=== PATIENT | female | born 1985 | race Caucasian/White ===

== ENCOUNTER → 2018-02-11 | Outpatient (CLI) | payer OTHER ==
[~2018-02-11] MED LIST: ALBU90OI61 INH
== END ==
LOC: LAB 14:07 → LAB SHORT 14:07
PROVIDERS: Registered Nurse Community Health
DX: Z12.4 Encounter for screening for malignant neoplasm of cervix (principal)
CPT/HCPCS: 87624; G0123

== ENCOUNTER → 2018-03-08 | Outpatient (CLI) | payer OTHER ==
[2018-03-08 13:34] LABS: BASOPHILS ABSOLUTE AUTO 0.07 K/mm3 (0.00-0.23); BASOPHILS PERCENT AUTO 1 % (0-2); EOSINOPHILS PERCENT AUTO 2 % (0-6); Hematocrit 44.1 % (33.0-51.0); Hemoglobin 14.8 g/dL (11.5-16.0); IMMATURE GRAN ABSOLUTE AUTO 0.09 K/mm3 (0.00-0.10); IMMATURE GRAN PERCENT AUTO 1 % (0-1); LYMPHOCYTES ABSOLUTE AUTO 3.51 K/mm3 (0.84-5.20); LYMPHOCYTES PERCENT AUTO 24 % (21-46); MONOCYTES ABSOLUTE AUTO 0.89 K/mm3 (0.16-1.47); MONOCYTES PERCENT AUTO 6 % (4-13); Mean Corpuscular HGB 31.5 pg (26.0-34.0); Mean Corpuscular HGB Conc 33.6 g/dL (31.5-36.5); Mean Corpuscular Volume 94 fL (80-100); Mean Platelet Volume 9.2 fL (9.1-12.4); NEUTROPHILS ABSOLUTE AUTO 10.07 K/mm3 (1.96-9.15); NEUTROPHILS PERCENT AUTO 67 % (41-73); Platelet Count 336 K/mm3 (150-400); RDW Coefficient Variation 12.7 % (11.7-14.2); RDW Standard Deviation 43.8 fL (35.1-46.3); White Blood Cell Count 14.93 K/mm3 (4.00-11.30)
[2018-03-08 14:15] LABS: Alanine Aminotransfer (ALT/SGP 19 U/L (12-78); Albumin, Blood 3.6 g/dL (3.4-5.0); Alk Phos 64 U/L (40-126); Anion Gap 9 mmol/L (6-16); Aspartate Aminotrans (AST/SGOT 11 U/L (12-37); Bilirubin, Total 0.5 mg/dL (0.1-1.0); Blood Urea Nitrogen 21 mg/dL (8-24); Bun/Creatinine Ratio 24.4 (12.0-20.0); CO2, Blood 26 mmol/L (21-32); Calcium, Blood 8.7 mg/dL (8.5-10.1); Chloride, Blood 105 mmol/L (98-108); Creatinine, Blood 0.86 mg/dL (0.40-1.00); Globulin, Blood 3.7 g/dL (2.2-4.0); Glomerular Filtration Rate >60 (60-); Glucose, Blood 80 mg/dL (70-99); Potassium, Blood 4.5 mmol/L (3.5-5.5); Sodium, Blood 140 mmol/L (136-145); Total Protein, Blood 7.3 g/dL (6.4-8.2)
== END ==
LOC: LAB SHORT 13:27 → LAB EV 13:27
PROVIDERS: Physician Assistant Surgical
DX: R10.9 Unspecified abdominal pain (principal)
CPT/HCPCS: 80053; 83690; 85025

== ENCOUNTER 2018-05-04 01:34 | Emergency (ER) | payer OTHER ==
[~2018-05-04] VITALS: Ht 180.3 cm; Wt 134.7 kg
[2018-05-04] MEDS ORDERED: LEVSOD50 PO (02:19)
[2018-05-04] MEDS ORDERED: Prednisone20 MG PO (02:36)
== END 2018-05-04 02:55 | disposition home or self-care (01) ==
LOC: ER 01:34
DX: J45.901 Unspecified asthma with (acute) exacerbation (principal); Z88.0 Allergy status to penicillin; Z79.899 Other long term (current) drug therapy; Z79.51 Long term (current) use of inhaled steroids; Z87.891 Personal history of nicotine dependence
CPT/HCPCS: 94640; 99284-25

== ENCOUNTER → 2018-07-09 | Outpatient (CLI) | payer OTHER ==
[~2018-07-09] MED LIST changes: +BIRTH CONTROL; +CYCL10 PO; +IBUP600 PO; +LEVSOD50 PO; +LOSA25 PO; +Prednisone20 MG PO
[2018-07-09 10:52] LABS: BASOPHILS ABSOLUTE AUTO 0.09 K/mm3 (0.00-0.23); BASOPHILS PERCENT AUTO 1 % (0-2); EOSINOPHILS ABSOLUTE AUTO 0.26 K/mm3 (0.00-0.68); EOSINOPHILS PERCENT AUTO 2 % (0-6); Hematocrit 36.8 % (33.0-51.0); Hemoglobin 12.5 g/dL (11.5-16.0); IMMATURE GRAN ABSOLUTE AUTO 0.08 K/mm3 (0.00-0.10); IMMATURE GRAN PERCENT AUTO 1 % (0-1); LYMPHOCYTES ABSOLUTE AUTO 2.14 K/mm3 (0.84-5.20); LYMPHOCYTES PERCENT AUTO 14 % (21-46); MONOCYTES ABSOLUTE AUTO 1.14 K/mm3 (0.16-1.47); MONOCYTES PERCENT AUTO 8 % (4-13); Mean Corpuscular HGB 31.7 pg (26.0-34.0); Mean Corpuscular Volume 93 fL (80-100); Mean Platelet Volume 9.6 fL (9.1-12.4); NEUTROPHILS ABSOLUTE AUTO 11.11 K/mm3 (1.96-9.15); NEUTROPHILS PERCENT AUTO 75 % (41-73); Platelet Count 313 K/mm3 (150-400); RDW Coefficient Variation 12.2 % (11.7-14.2); RDW Standard Deviation 42.3 fL (35.1-46.3); Red Blood Cell Count 3.94 M/mm3 (3.80-5.20); White Blood Cell Count 14.82 K/mm3 (4.00-11.30)
[2018-07-09 11:01] LABS: Alanine Aminotransfer (ALT/SGP 20 U/L (12-78); Albumin, Blood 3.2 g/dL (3.4-5.0); Albumin/Globulin Ratio 0.7 (0.8-1.8); Alk Phos 89 U/L (40-126); Anion Gap 9 mmol/L (6-16); Aspartate Aminotrans (AST/SGOT 12 U/L (12-37); Bilirubin, Total 0.5 mg/dL (0.1-1.0); Blood Urea Nitrogen 13 mg/dL (8-24); Bun/Creatinine Ratio 17.1 (12.0-20.0); CO2, Blood 26 mmol/L (21-32); Calcium, Blood 9.1 mg/dL (8.5-10.1); Chloride, Blood 102 mmol/L (98-108); Creatinine, Blood 0.76 mg/dL (0.40-1.00); Globulin, Blood 4.3 g/dL (2.2-4.0); Glomerular Filtration Rate >60 (60-); Glucose, Blood 103 mg/dL (70-99); Potassium, Blood 3.7 mmol/L (3.5-5.5); Sodium, Blood 137 mmol/L (136-145); Total Protein, Blood 7.5 g/dL (6.4-8.2)
== END | disposition home or self-care (01) ==
LOC: LAB SHORT 10:45 → LAB EV 10:45
PROVIDERS: Physician Assistant
DX: R06.00 Dyspnea, unspecified (principal)
CPT/HCPCS: 80053; 85025

== ENCOUNTER 2018-07-10 02:54 | Emergency (ER) | payer OTHER ==
[~2018-07-10] VITALS: Ht 180.3 cm; Wt 133.8 kg
[~2018-07-10 02:54] MED LIST changes: -IBUP600 PO
[2018-07-10] MEDS ORDERED: IBUP600 PO (04:07)
== END 2018-07-10 04:35 | disposition home or self-care (01) ==
LOC: ER 02:54
DX: S20.211A Contusion of right front wall of thorax, initial encounter (principal); W22.8XXA Striking against or struck by other objects, initial encounter; Z88.0 Allergy status to penicillin; Z79.899 Other long term (current) drug therapy; J45.909 Unspecified asthma, uncomplicated; I10 Essential (primary) hypertension; Z87.891 Personal history of nicotine dependence
CPT/HCPCS: 71046; 96372; 99283-25; J1885

== ENCOUNTER → 2022-07-25 | Outpatient (CLI) | payer OTHER ==
[~2022-07-25] MED LIST changes: +IBUP600 PO
== END | disposition home or self-care (01) ==
LOC: LAB 18:44 → LAB SHORT 18:44
DX: J45.21 Mild intermittent asthma with (acute) exacerbation (principal)
CPT/HCPCS: 85379

== ENCOUNTER 2025-08-10 09:12 | Day surgery (SDC) | payer OTHER ==
[2025-08-10] VITALS (12 sets, daily range): BP systolic 108–134; BP diastolic 64–85
[~2025-08-10] VITALS: Ht 175.3 cm; Wt 106.7 kg
[~2025-08-10 09:12] MED LIST changes: +ALBU90OI INH; +ALDACTONE25 MG PO; +AUVELITY ER 451 EACH PO; +Adderall 20 MG20 MG PO; +CLOBETASOL PROP59 ML TOP; +CeFAZolin Sodium 2,000 MG in NS 100 ML IV SCH; +GABA100 PO; +HYDROCHLOROTH12.5 MG PO; +LEVSOD137 PO; -LEVSOD50 PO; -LOSA25 PO; +LOSARTAN POTAS100 M1 PO; +NAPR500 PO; +ONDA4ODT MM; +OZEMPIC2 MG/0.75 SC; +Prilosec Otc20 MG PO; +Prozac20 MG PO; +SUBOXONE 8 MG-1 EACH SL
[2025-08-10] MEDS ORDERED: CeFAZolin Sodium 2,000 MG VIAL ONE (10:08)
--- NOTE | 2025-08-10 10:21 | NUR ---
PATIENT ACCOMPANIED TO DAY SURGERY WITH SON, HOLLI. RIDE ARRANGED HOME WITH DAUGHTER, WHO HOLLI WILL CONTACT AFTER SURGERY. PATIENT USING BEAR HUGGER DUE TO C/O OF COLD. PATIENT REMOVING NOSE RING AND EARING HOOP AND GIVING TO SON FOR SAFE KEEPING.
[2025-08-10] MEDS ORDERED: FentaNYL Citrate 50 MCG/ML 2 ML Injection ONE ×2 (10:48→13:35)
[2025-08-10] MEDS ORDERED: Midazolam HCl 1MG / ML 2ML Vial ONE (10:48)
[2025-08-10] MEDS ORDERED: Rocuronium Bromide 10 MG/ML 5ML Injection IV ONE (10:54)
[2025-08-10] MEDS ORDERED: Bupivacaine 0.5% HCl 5 MG/ML 30MLVIAL ONE (11:36)
[2025-08-10] MEDS ORDERED: Ondansetron HCl 2 MG / ML 2ML Vial ONE (12:04)
[2025-08-10] MEDS ORDERED: Dexamethasone Sod Phos 10 MG/ML 1ML VIAL ONE (12:04)
[2025-08-10] MEDS ORDERED: Sugammadex Sodium 200 MG/2ML SDV (100 MG/ML) ONE (12:18)
[2025-08-10] MEDS ORDERED: Ketorolac Tromethamine 30mg Vial ONE (12:18)
[2025-08-10] MEDS ORDERED: Ondansetron HCl 2 MG / ML 2ML Vial IV PRN (12:55)
[2025-08-10] MEDS ORDERED: Metoclopramide HCl 5MG / ML 2ML Vial IV PRN (12:55)
[2025-08-10] MEDS ORDERED: Prochlorperazine Edisylate 10 mg Vial IV PRN (12:55)
[2025-08-10] MEDS ORDERED: HYDROmorphone HCl/Pf 1MG SYR IV PRN ×2 (12:55)
[2025-08-10] MEDS ORDERED: FentaNYL Citrate 50 MCG/ML 2 ML Injection IV PRN ×2 (12:55→13:00)
--- NOTE | 2025-08-10 12:57 | NUR ---
08/10/25 1257 Lorena Villeda - 3ML
[2025-08-10] MEDS ORDERED: HYDROcodone 5-APAP 325 TAB PO PRN (13:35)
[2025-08-10] MEDS ORDERED: Ipratropium/Albuterol SulF 2.5-0.5MG/3 ML Amp INH ONE (13:55)
[2025-08-10] MEDS ORDERED: Ipratropium/Albuterol SulF 2.5-0.5MG/3 ML Amp ONE (13:56)
--- NOTE | 2025-08-10 14:56 | NUR ---
PT A&OX4, BREATHING RA, TOLERATING PO INTAKE, VSS. Patient up to Ambulate independently. Gait steady. Discharge instructions reviewed with patient. Patient verbalizes understanding. Copy given to patient to take home.PAIN MANAGED BY PAIN MEDICATION, NO NAUSEA. Dressing to procedure site clean, dry, intact with no visible drainage, swelling, erythema or bruising noted. Discharged via wheelchair to private car for ride home.
== END 2025-08-10 23:00 | disposition home or self-care (01) ==
LOC: ORSCMMR 09:12 → ORD 10:30 → ORSCMMR 10:30
PROVIDERS: Surgery
PROC: BF031ZZ Plain Radiography of Gallbladder and Bile Ducts using Low Osmolar Contrast (ICD-10-PCS; principal; 2025-08-10 10:30)
PROC: 0FT44ZZ Resection of Gallbladder, Percutaneous Endoscopic Approach (ICD-10-PCS; principal; 2025-08-10 10:30)
DX: K80.10 Calculus of gallbladder with chronic cholecystitis without obstruction (principal); I10 Essential (primary) hypertension; E11.9 Type 2 diabetes mellitus without complications; G47.33 Obstructive sleep apnea (adult) (pediatric); J45.909 Unspecified asthma, uncomplicated; F41.9 Anxiety disorder, unspecified; E03.9 Hypothyroidism, unspecified; Z79.899 Other long term (current) drug therapy; Z79.85 Long-term (current) use of injectable non-insulin antidiabetic drugs
CPT/HCPCS: 74300; 82947; 88304; A9270; C1729; J0690; J1100; J1885; J2250; J2405; J2704; J3010; J7120